=== PATIENT | female | born 1995 | race African-American/Black ===

== ENCOUNTER 2018-07-03 11:06 | Emergency (ER) | payer OTHER ==
[2018-07-03] MEDS: IBUPROFEN 600 MG TAB PO (12:15)
== END 2018-07-03 13:20 | disposition home or self-care (01) ==
LOC: M ED 11:06
DX: S16.9XXA Unspecified injury of muscle, fascia and tendon at neck level, initial encounter (principal); Y04.8XXA Assault by other bodily force, initial encounter; Y07.01 Husband, perpetrator of maltreatment and neglect; Y92.89 Other specified places as the place of occurrence of the external cause; F17.210 Nicotine dependence, cigarettes, uncomplicated
CPT/HCPCS: 70490

== ENCOUNTER 2018-11-08 08:00 | Emergency (ER) | payer OTHER ==
[~2018-11-08] VITALS: Ht 167.6 cm; Wt 70.9 kg
[~2018-11-08 08:00] MED LIST: IBUP-1022 PO
[2018-11-08] MEDS ORDERED: MULTCAP PO (08:05)
--- NOTE | 2018-11-08 09:09 | REP ---
Chest x-ray: Two views. History: Cough. Right upper chest pain. Findings: There is a moderate dextroconvex thoracic scoliotic curve. EKG monitoring electrodes are seen. The lungs are symmetrically aerated and free of infiltrate. Pleural angles are sharp. Heart size is normal. Impression: Scoliosis. Otherwise no active disease. Electronically Signed by Messi Rondon MD 11/08/2018 09:00 A
[2018-11-08 10:13] LABS: BLOOD UREA NITROGEN 15 MG/DL (7-18); CALCIUM LEVEL 8.5 MG/DL (8.5-10.1); CARBON DIOXIDE LEVEL 28 MEQ/L (21-32); CHLORIDE LEVEL 107 MEQ/L (98-107); CREATININE FOR GFR 0.84 MG/DL (0.55-1.30); GLOMERULAR FILTRATION RATE > 60.0 (>60); GLUCOSE, FASTING 92 MG/DL (70-100); POTASSIUM SERUM 4.4 MEQ/L (3.5-5.1); SODIUM LEVEL 139 MEQ/L (136-145)
[2018-11-08 10:19] LABS: HCG, SERUM QUALITATIVE NEGATIVE (NEGATIVE)
[2018-11-08] MEDS ORDERED: ISOVUE-370 76% 125ML VIAL (Q9967 PER ML) As Ordered ONE (10:31)
--- NOTE | 2018-11-08 11:31 | REP ---
CT pulmonary angiogram: With IV contrast. History: Rule out pulmonary embolus. Comparison studies: No comparison study. Contrast dose: 75 ML of Isovue [address] technique: Helical scanning is acquired and overlapping 1.5 mm and contiguous 3 mm axial images are reformatted. In addition, maximum intensity projection and multiplanar re-formation images are generated in sagittal and coronal imaging projections. CT pulmonary angiographic findings: There is good opacification of the pulmonary arterial tree. There is no CT evidence of pulmonary embolism. There is early homogeneous enhancement of the aorta which is normal in caliber. No evidence of dissection or aneurysm. No mediastinal mass or adenopathy is seen. No pleural or pericardial effusion is noted. There is a dextroconvex thoracic scoliotic curve. Maximal intensity projection images show no evidence of filling defect or vessel cutoff. The lung kwan are clear. There is one 4 mm noncalcified pulmonary nodule in the right middle lobe seen on page 46 of 88 in series 402 of today's study. This is better displayed on coronal and sagittal MPR images. No other pulmonary nodule is seen. No bony destructive lesion is seen. Visualized upper abdominal structures are unremarkable. Impression: No CT evidence of pulmonary embolus. Dextroconvex thoracic scoliosis. Single 4 mm noncalcified right middle lobe pulmonary nodule. No acute disease. Electronically Signed by Messi Rondon MD 11/08/2018 12:09 P
[2018-11-08 11:45] VITALS: BP 99/61
--- NOTE | 2018-11-08 21:08 | ECGEPIP ---
Stationary ECG Study [facility] - ED Test Date: 2018-11-08 Pat Name: RUKHSANA MORENO Department: Room: - Gender: F [facility] Registered Nurse: : [id number] Requested By: Neo Ortiz Order Number: [id number] Reading MD: Jazmine Velasco Measurements Intervals [place] Rate: 64 P: 58 MS: 167 QRS: 37 QRSD: 82 T: 17 QT: 396 QTc: 409 Interpretive Statements SINUS RHYTHM WITH SINUS ARRHYTHMIA NSTTW ABNORMALITY NO PRIOR FOR COMPARISON Electronically Signed On 11-08-2018 21:08:21 EDT by Jazmine Velasco
--- NOTE | 2018-11-10 13:04 | ED PDOC ---
Post-Departure Follow-Up jose herndon faxed formal report of cta chest for fu Velia Agee MD Nov 10, 2018 13:04
== END 2018-11-08 12:02 | disposition home or self-care (01) ==
LOC: M ED 08:00
DX: R06.9 Unspecified abnormalities of breathing (principal); R07.89 Other chest pain; I49.9 Cardiac arrhythmia, unspecified; R91.1 Solitary pulmonary nodule; M41.124 Adolescent idiopathic scoliosis, thoracic region
CPT/HCPCS: 71046; 71275; 80048; 84703; 85379; 93005; 99284; Q9967